=== PATIENT | female | born 2000 | race African-American/Black ===

== ENCOUNTER 2023-11-02 06:45 | Inpatient (IN) ==
[2023-11-02] MEDS ORDERED: REGLAN INJ 10 MG VIAL IVP PRN (06:52)
[2023-11-02] MEDS ORDERED: NUBAIN INJ 20 MG AMP IVP PRN (06:52)
[2023-11-02] MEDS ORDERED: ZOFRAN INJ 4 MG VIAL IVP PRN (06:52)
[2023-11-02] MEDS: LR 1,000 ML IV 1,000 ML IV SCH (07:33)
[2023-11-02 07:37] LABS: BASOPHILS % (AUTO) 0.4 % (0.2-1.0); EOSINOPHILS # (AUTO) 0.2 x10^3/uL (0.0-0.2); EOSINOPHILS % (AUTO) 2.4 % (0.9-2.9); HEMOGLOBIN 11.6 g/dL (12.0-16.0); LYMPHOCYTES # (AUTO) 1.4 X10^3/uL (1.3-2.9); LYMPHOCYTES % (AUTO) 20.4 % (21.0-51.0); MEAN CORPUSCULAR HGB CONC 33.1 g/dL (33.0-35.0); MEAN CORPUSCULAR VOLUME 81.7 fL (80.0-100.0); MEAN PLATELET VOLUME 9.9 fL (7.4-11.0); MONOCYTES # (AUTO) 0.6 x10^3/uL (0.3-0.8); MONOCYTES % (AUTO) 8.9 % (0.0-13.0); NEUTROPHILS # (AUTO) 4.8 x10^3/uL (2.2-4.8); NEUTROPHILS % (AUTO) 67.9 % (42.0-75.0); PLATELET COUNT 185 X10^3/uL (150.0-450.0); RED BLOOD COUNT 4.29 X10^6/uL (3.5-5.4); RED CELL DISTRIBUTION WIDTH 14.4 % (11.6-16.5)
[2023-11-02 07:44] LABS: BILIRUBIN,URINE NEGATIVE (NEGATIVE); BLOOD/HEMOGLOBIN,URINE NEGATIVE (NEGATIVE); GLUCOSE, URINE NEGATIVE (NEGATIVE); KETONES,URINE NEGATIVE (NEGATIVE); LEUKOCYTE ESTERASE ,URINE NEGATIVE (NEGATIVE); NITRITES,URINE NEGATIVE (NEGATIVE); PROTEIN,URINE NEGATIVE (NEGATIVE); UROBILINOGEN,URINE NORMAL (NORMAL)
[2023-11-02] MEDS: OXYTOCIN 20 UNIT/1,000 ML-NS 20 UNIT/1,000 ML PLAST..BAG IV PRN (07:45)
[2023-11-02 07:46] LABS: APPEARANCE,URINE CLEAR (CLEAR); COLOR,URINE PALE YELLOW (YELLOW)
[2023-11-02 07:51] LABS: BLOOD UREA NITROGEN 6 mg/dL (7-18); CALCIUM 8.5 mg/dL (8.5-10.1); CARBON DIOXIDE 24.5 mmol/L (21-32); CHLORIDE 102 mmol/L (98-107); CREATININE 0.51 mg/dL (0.55-1.02); GLUCOSE 83 mg/dL (65-99); POTASSIUM 3.5 mmol/L (3.5-5.1); SODIUM 135 mmol/L (136-145); eGFR NON BLACK RACES > 60 (>60)
[2023-11-02] MEDS: BETADINE SOLN ONE (10:53)
[2023-11-02] MEDS: LR 1,000 ML IV 1,000 ML IV ONE ×2 (10:53→14:38)
[2023-11-02] MEDS: FENTANYL VIAL INJ 100 mcg ONE (12:00)
[2023-11-02] MEDS: NAROPIN EPIDURAL 0.2% 100 ML ONE (12:15)
[2023-11-02] MEDS ORDERED: MOTRIN TAB 800 MG PO PRN (16:00)
[2023-11-02] MEDS ORDERED: OXYTOCIN 20 UNIT/1,000 ML-NS 20 UNIT/1,000 ML PLAST..BAG IV SCH (16:00)
[2023-11-02] MEDS: PITOCIN IVP ONE (16:16)
[2023-11-02] MEDS: PITOCIN ONE (16:42)
[2023-11-02] MEDS: OXYTOCIN 20 UNIT/1,000 ML-NS 20 UNIT/1,000 ML PLAST..BAG IV SCH (16:57)
[2023-11-02] MEDS: MOTRIN TAB 800 MG PO PRN (18:04)
[2023-11-03 05:01] LABS: HEMOGLOBIN 10.5 g/dL (12.0-16.0)
[2023-11-03 16:42] VITALS: BP 122/74; PULSE 67; TEMP 98.1; O2SAT 98
[2023-11-03 17:10] VITALS: RESP 20
== END 2023-11-03 17:30 | disposition home or self-care (01) | DRG 768 ==
LOC: LD 06:45 → MED/SURG 17:55
PROVIDERS: ADMIT Obstetrics & Gynecology Obstetrics; ATTEND Obstetrics & Gynecology Obstetrics
DX: Z37.0 Single live birth; O26.893 Other specified pregnancy related conditions, third trimester; O70.1 Second degree perineal laceration during delivery; O71.82 Other specified trauma to perineum and vulva; Z3A.39 39 weeks gestation of pregnancy